=== PATIENT | female | born 1990 ===

== ENCOUNTER 2019-05-08 18:24 | Emergency (ER) | payer OTHER ==
[2019-05-08 18:29] VITALS: BP 121/85
== END 2019-05-08 20:32 | disposition left against medical advice (07) ==
LOC: ED 18:24
DX: Z53.21 Procedure and treatment not carried out due to patient leaving prior to being seen by health care provider (principal); N93.9 Abnormal uterine and vaginal bleeding, unspecified; G43.909 Migraine, unspecified, not intractable, without status migrainosus
CPT/HCPCS: 99282